=== PATIENT | female | born 1995 | race Caucasian/White ===

== ENCOUNTER 2018-11-14 23:43 | Emergency (ER) | payer SELFPAY ==
[2018-11-15 00:45] VITALS: BP 147/87
--- NOTE | 2018-11-15 02:01 | ER Document Report ---
ED Medical Screen (RME) - General Chief Complaint: Vaginal Bleeding Stated Complaint: VAGINAL BLEEDING Time Seen by Provider: 11/15/18 01:59 Primary Care Provider: ANGELIQUE MERCADO MD [Primary Care Provider] - Follow up as needed Notes: 23-year-old female with hypothyroidism presents emergency department for irregular vaginal bleeding. She states that she had not previously had a period in 4 months and she was making adjustments with her primary care doctor with her levothyroxine dosing. When she was changed to the brand Synthroid and change to 200 mcg she immediately started having a.. She said it was brown and spotty for the first 3-4 and then became heavy. And then yesterday was passing some clots. Today she passed a large clot of her seek care. She denies any dizziness or lightheadedness, she denies any abdominal cramping or pain. Denies shortness of breath or chest pain. Denies urinary symptoms. No other complaints I have greeted and performed a rapid initial assessment of this patient. A comprehensive ED assessment and evaluation of the patient, analysis of test results and completion of medical decision making process will be conducted by an additional ED providers. TRAVEL OUTSIDE OF THE [place] IN LAST 30 DAYS: No - Related Data Allergies/Adverse Reactions: No Known Allergies Allergy (Verified 05/10/16 07:46) Past Medical History - Immunizations Hx Diphtheria, Pertussis, Tetanus Vaccination: Yes Physical Exam - Vital signs Vitals: Temp Pulse Resp BP Pulse Ox 98.0 F 89 16 147/87 H 100 11/15/18 00:43 11/15/18 00:43 11/15/18 00:43 11/15/18 00:43 11/15/18 00:43 - Respiratory Respiratory status: No respiratory distress Chest status: Nontender Breath sounds: Normal Chest palpation: Normal - Cardiovascular Rhythm: Regular Heart sounds: Normal auscultation, S1 appreciated, S2 appreciated Murmur: No Course - Vital Signs Vital signs: Temp Pulse Resp BP Pulse Ox 98.0 F 89 16 147/87 H 100 11/15/18 00:43 11/15/18 00:43 11/15/18 00:43 11/15/18 00:43 11/15/18 00:43 Doctor's Discharge - Discharge Referrals: ANGELIQUE MERCADO MD [Primary Care Provider] - Follow up as needed
== END 2018-11-15 02:39 | disposition left against medical advice (07) ==
LOC: ER 23:43
DX: N93.8 Other specified abnormal uterine and vaginal bleeding (principal)
CPT/HCPCS: 99281